=== PATIENT | female | born 1995 | race Caucasian/White ===

== ENCOUNTER 2019-10-17 13:05 | Outpatient (CLI) | payer OTHER ==
[2019-10-17 14:18] LABS: APPEARANCE,URINE CLOUDY; BILIRUBIN,URINE NEGATIVE (NEGATIVE); COLOR,URINE YELLOW; GLUCOSE, URINE 50 mg/dL (NEGATIVE); KETONES,URINE TRACE mg/dL (NEGATIVE); LEUKOCYTE ESTERASE,URINE LARGE (NEGATIVE); NITRITE,URINE NEGATIVE (NEGATIVE); PROTEIN,URINE 30 mg/dL (NEGATIVE)
[2019-10-17 14:52] LABS: URINE AMPHETAMINES SCREEN NEGATIVE; URINE BARBITURATES SCREEN NEGATIVE; URINE BENZODIAZEPINES SCREEN NEGATIVE; URINE COCAINE SCREEN NEGATIVE; URINE MARIJUANA (THC) SCREEN NEGATIVE; URINE METHADONE SCREEN NEGATIVE; URINE PHENCYCLIDINE SCREEN NEGATIVE
[2019-10-17 15:00] LABS: BACTERIA (WET MOUNT) 4+ BACTERIA SEEN; RBCS (WET MOUNT) FEW RBCS SEEN; T.VAGINALIS (WET MOUNT) NO TRICHOMONAS SEEN; WBCS (WET MOUNT) 4+ WBCS SEEN; YEAST (WET MOUNT) NO YEAST SEEN
[2019-10-17 16:29] LABS: CHLAM PCR NOT DETECTED (NOT DETECT)
[2019-10-20 12:50] LABS: HSV-I IGG AB 34.6 index (0.00-0.90)
== END 2019-10-17 19:00 | disposition home or self-care (01) ==
LOC: LC 13:05
PROVIDERS: ATTEND Obstetrics & Gynecology
PROC: 4A1HXCZ Monitoring of Products of Conception, Cardiac Rate, External Approach (ICD-10-PCS; principal; 2019-10-17)
DX: Z34.83 Encounter for supervision of other normal pregnancy, third trimester (principal); Z3A.35 35 weeks gestation of pregnancy
CPT/HCPCS: 36415; 59025; 80307; 81005; 84112; 86695; 86696; 86850; 86870; 86900; 86901; 87210; 87250; 87491; 87591

== ENCOUNTER 2019-11-06 03:51 | Inpatient (IN) | payer OTHER ==
[2019-11-06] MEDS ORDERED: LIDOCAINE 1% INJ-PF (10 MG/ML) 30 ML SDV ONE (04:01)
[2019-11-06] MEDS ORDERED: OXYTOCIN/NORMAL SALINE 20 UNIT/1,000 ML RTUINJ ONE (04:01)
[2019-11-06] MEDS ORDERED: MISOPROSTOL 0.2 MG TABLET ONE (04:01)
[2019-11-06] MEDS ORDERED: OXYTOCIN 10 UNIT/ML VIAL ONE (04:01)
[2019-11-06 04:31] LABS: ABSOLUTE BASOPHILS # (AUTO) 0.1 10^3/uL (0.0-0.2); ABSOLUTE LYMPHOCYTES (AUTO) 1.2 10^3/uL (0.5-4.7); ABSOLUTE MONOCYTES (AUTO) 0.7 10^3/uL (0.1-1.4); ABSOLUTE NEUT (AUTO) 9.7 10^3/uL (1.7-8.2); BASOPHILS % (AUTO) 0.5 % (0-2); EOSINOPHILS % (AUTO) 0.2 % (0-6); HEMATOCRIT 34.3 % (36.0-47.0); HEMOGLOBIN 11.8 g/dL (12.0-15.5); LYMPHOCYTES % (AUTO) 10.6 % (13-45); MEAN CORPUSCULAR HEMOGLOBIN 28.2 pg (27.0-33.4); MEAN CORPUSCULAR HGB CONC 34.3 g/dL (32.0-36.0); MEAN CORPUSCULAR VOLUME 82 fl (80-97); MONOCYTES % (AUTO) 5.6 % (3-13); PLATELET COUNT 170 10^3/uL (150-450); RED BLOOD COUNT 4.17 10^6/uL (3.72-5.28); RED CELL DISTRIBUTION WIDTH 18.8 % (11.5-14.0); SEGMENTED NEUTROPHILS % (AUTO) 83.1 % (42-78); TOTAL CELLS COUNTED % (AUTO) 100 %; WHITE BLOOD COUNT 11.7 10^3/uL (4.0-10.5)
--- NOTE | 2019-11-06 04:33 | Admission Physical ---
Datetime Report Generated by CPN: 11/06/2019 04:33 CURRENT ADMISSION Chief Complaint: Uterine Contractions Admit Impression : Term, Intrauterine ; Active Labor Admit Plan: Admit to Unit ALLERGIES Medication Allergies: Yes Medication Allergies: oxycodone (11/06/2019); acetaminophen (11/06/2019) Latex: No Latex Allergies OBSTETRICAL HISTORY EDC: 11/15/2019 00:00 : 4 Para: 1 Term: 1 : 0 SAB: 2 IAB: 0 Livin SEE RECORDS Alcohol: No Marijuana : No Cocaine: No Other Illicit Drugs: No Cigarettes: Former Smoker. [id number] PHYSICAL EXAM General: Normal HEENT: Normal Neurologic: Normal Thyroid: Normal Heart: Normal Lungs: Normal Breast: Normal Back: Normal Abdomen: Normal Genitourinary Exam: Normal Extremities: Normal DTRs: Normal Pelvic Type: Adequate Vital Signs: Reviewed VAGINAL EXAM Dilatation: 8 Effacement: 90 Station: -2 MEMBRANES Pooling: Negative Membranes: Intact FETUS A EGA: 38.5 Monitoring: External US FHR- Baseline: 125 Variability: Moderate 6-25bpm Accelerations: Prolonged Decelerations: None FHR Category: Category I Presentation: Vertex Admit Comment: at 38.5 wks EGA in active labor -Admit to LDR -NPO and IVFs: LR at 125 cc/hr, after Bolus of 1000cc -GBS negative -Hx one prior -Hx of labial lesion which cultured positive for HSV. Patient acts unaware of this and denies taking valtrex. On exam no lesions. There is a small abrasion on mons some distance from labia which she states is from shaving which also looks like it is from shaving. No ulcers, lesions, etc on speculum exam or labia/vulva -Anticipate . Wants Epidural if able. INFORMED CONSENT Informed Consent Obtained: Vaginal Delivery; Section Delivery; Risks, Benefits and Alternatives Discussed Signature: with User ID: Leona : with User ID: Leona
[2019-11-06] MEDS ORDERED: IBUPROFEN 800 MG TABLET ONE (06:28)
--- NOTE | 2019-11-06 06:53 | Delivery Summary ---
Del Sum A-C Datetime Report Generated by CPN: 11/06/2019 06:53 DELIVERY PERSONNEL DELIVERY PERSONNEL: [id number] Delivery Doctor:: Leticia Hay MD Labor and Delivery Nurse:: Fidelina Evans RNsingle pass soil stabilizer operator Nurse:: Bianca Treviño RN Tester Equipment:: Kenyatta Simmons RN Volunteer Firefighter/INVESTMENT COUNSELOR: [place] Green, ST MATERNAL INFORMATION Delivery Anesthesia: None Medications After Delivery: Pitocin Bolus-Please Comment Meds After Delivery Comment: Pitocin 20 units/1000 ml NSS Estimated Blood Loss (ml): 100 Maternal Complications: Precipitous Labor (<3hrs) Provider Comments: Called to patients room as she was completely dilated and +3 station with urge to push. Patient delivered over intact perinuem. After delivery of the head, the shoulders and rest of the body followed easily. Viable male in ANGEL presentation and vigorous at delivery. Cord clamping delayed 30 seconds and then after cutting cord he was placed on mohter's chest. Both mother and were stable. LABOR SUMMARY EDC: 11/15/2019 00:00 No. Babies in Womb: 1 Attempted: No Labor Anesthesia: None LABOR INFORMATION Reason for Induction: Not Applicable Onset of Labor: 11/06/2019 04:01 Complete Dilatation: 11/06/2019 05:00 Oxytocin: N/A Group B Beta Strep: Negative Antibiotics # of Doses: 0 Steroids Given: None Reason Steroids Not Administered: Not Applicable MEMBRANES Membranes Rupture Method: Spontaneous Rupture of Membranes: 11/06/2019 05:40 Length of Rupture (hr): 0.18 Amniotic Fluid Color: Clear Amniotic Fluid Amount: Moderate Amniotic Fluid Odor: Normal STAGES OF LABOR Stage 1 hr: 0 Stage 1 min: 59 Stage 2 hr: 0 Stage 2 min: 51 Stage 3 hr: 0 Stage 3 min: 4 Total Time in Labor hr: 1 Total Time in Labor min: 54 VAGINAL DELIVERY Episiotomy: None Laceration #1: None Laceration Extension #1: N/A Other Laceration: superficial left labial laceration that was hemostatic Laceration Repair: No Sponge Count Correct: Yes Sharps Count Correct: Yes CSECTION DELIVERY Primary Indication: N/A Secondary Indication: N/A CSection Urgency: N/A CSection Incidence: N/A Labor: N/A Elective: N/A CSection Incision: N/A BABY A INFORMATION Infant Delivery Date/Time: 11/06/2019 05:51 Method of Delivery: Vaginal Nurse Controlled Delivery: No Born in Route : No : N/A Forceps: N/A Vacuum Extraction: N/A Shoulder Dystocia : No PRESENTATION/POSITION BABY A Presentation: Cephalic Cephalic Presentation: Vertex Vertex Position: Left Occipital Anterior Breech Presentation: N/A PLACENTA INFORMATION BABY A Placenta Delivery Time : 11/06/2019 05:55 Placenta Method of Delivery: Spontaneous Placenta Status: Delivered SCORES BABY A Heart Rate 1 min: >100 bpm Resp Effort 1 min: Good Cry Reflex Irritability 1 min: Cough or Sneeze or Pulls Away Muscle Tone 1 min: Active Motion Color 1 min: Body [place], Extremities Blue Resuscitation Effort 1 min: Tactile Stimulation SCORE 1 MIN: 9 Heart Rate 5 min: >100 bpm Resp Effort 5 min: Good Cry Reflex Irritability 5 min: Cough or Sneeze or Pulls Away Muscle Tone 5 min: Active Motion Color 5 min: Body [place], Extremities Blue Resuscitation Effort 5 min: N/A SCORE 5 MIN: 9 INFORMATION BABY A Gestational Age at Delivery: 38.5 Gestational Status: Early Term- 37- 38.6 Weeks Outcome : Liveborn Condition : Stable Sex: Male IDENTIFICATION BABY A Infant Verification Date/Time: 11/06/2019 06:02 ID Band Number: [id number] Mother's Name Verified: Yes RN Verifying : J.Field, RN and E.Jilek, RN WEIGHT/LENGTH BABY A Birthweight (gm): 3630 Weight (lb): 8 Weight (oz): 0 Infant Length (in): 19.50 Length (cm): 49.53 CORD INFORMATION BABY A No. Cord Vessels: 3 Nuchal Cord : N/A Cord Blood Taken: Yes-For Eval (Mom's Blood Type - or O+) Suction: Mouth ASSESSMENT BABY A Complications: None Physical Findings at Delivery: Within Normal Limits Skin to Skin: No Senior Drupal Developer/ALS Called : No Transferred To: Remains with Mother BABY B INFORMATION : N/A SIGNATURES Signature: with User ID: Leona : with User ID: Leona
[2019-11-06] MEDS ORDERED: DIPH/PERTUSS(ACELL)/TETANUS VAC/PF 0.5 ML SYR (>=10YO) IM PRN (07:40)
[2019-11-06] MEDS ORDERED: ACETAMINOPHEN WITH CODEINE #3 TABLET PO PRN ×2 (07:40)
[2019-11-06] MEDS ORDERED: PROMETHAZINE HCL 25 MG SUPP.RECT PR PRN (07:40)
[2019-11-06] MEDS ORDERED: NA PHOS,M-B/NA PHOS,DI-BA (ADULT) 133 ML ENEMA PR PRN (07:40)
[2019-11-06] MEDS ORDERED: OXYTOCIN/NORMAL SALINE 20 UNIT/1,000 ML RTUINJ IV PRN (07:40)
[2019-11-06] MEDS ORDERED: DIPHENHYDRAMINE HCL 25 MG CAPSULE PO PRN (07:40)
[2019-11-06] MEDS ORDERED: PROMETHAZINE HCL INJ 25 MG/1 ML VIAL IV PRN (07:40)
[2019-11-06] MEDS ORDERED: BENZOCAINE/MENTHOL AEROSOL SPRAY 56 ML TOP PRN (07:40)
[2019-11-06] MEDS ORDERED: ZOLPIDEM TARTRATE 5 MG TABLET PO PRN (07:40)
[2019-11-06] MEDS ORDERED: DIBUCAINE 1% OINTMENT 28 GM TP PRN (07:40)
[2019-11-06] MEDS ORDERED: GLYCERIN/WITCH HAZEL LEAF 1 EACH MED..WIPE TP PRN (07:40)
[2019-11-06] MEDS ORDERED: ACETAMINOPHEN 650 MG SUPP.RECT PR PRN (07:40)
[2019-11-06] MEDS ORDERED: PSEUDOEPHEDRINE HCL 30 MG TABLET PO PRN (07:40)
[2019-11-06] MEDS ORDERED: PROMETHAZINE HCL 25 MG TABLET PO PRN (07:40)
[2019-11-06] MEDS ORDERED: MAGNESIUM HYDROXIDE SUSP 30 ML UDCUP PO PRN (07:40)
[2019-11-06] MEDS ORDERED: MEASLES,MUMPS&RUBELLA VACC/PF 0.5 ML VIAL SUBCUT PRN (07:40)
[2019-11-06] MEDS ORDERED: ACETAMINOPHEN WITH CODEINE #3 TABLET ONE (08:10)
--- NOTE | 2019-11-06 08:44 | Warning Signs in Babies ---
VOD Warning Signs Datetime Report Generated by [facility]: 11/06/2019 08:44 VOD#608 -Warning Signs in Babies: Viewed with Parent(s)/Family (11/06/2019 07:29:Jaquelin Dickinson RN)
[2019-11-06 08:46] LABS: APPEARANCE,URINE SLIGHTLY-CLOUDY; BILIRUBIN,URINE NEGATIVE (NEGATIVE); COLOR,URINE YELLOW; GLUCOSE, URINE NEGATIVE (NEGATIVE); KETONES,URINE TRACE mg/dL (NEGATIVE); LEUKOCYTE ESTERASE,URINE TRACE (NEGATIVE); NITRITE,URINE NEGATIVE (NEGATIVE); PROTEIN,URINE 30 mg/dL (NEGATIVE); URINE SPECIFIC GRAVITY 1.005; UROBILINOGEN,URINE NEGATIVE mg/dL (<2.0)
[2019-11-06 09:13] LABS: URINE AMPHETAMINES SCREEN NEGATIVE; URINE BARBITURATES SCREEN NEGATIVE; URINE BENZODIAZEPINES SCREEN NEGATIVE; URINE COCAINE SCREEN NEGATIVE; URINE MARIJUANA (THC) SCREEN NEGATIVE; URINE METHADONE SCREEN NEGATIVE; URINE PHENCYCLIDINE SCREEN NEGATIVE
[2019-11-06] MEDS ORDERED: DOCUSATE SODIUM 100 MG CAPSULE ONE (09:24)
[2019-11-06] MEDS ORDERED: FAMOTIDINE 20 MG TABLET ONE ×2 (09:24→11:18)
[2019-11-06] MEDS ORDERED: PRENATAL VITAMIN W DHA CAPSULE PO ONE (09:24)
[2019-11-06] MEDS ORDERED: SENNOSIDES/DOCUSATE 8.6-50 MG 1 EACH TABLET ONE (09:24)
[2019-11-06] MEDS ORDERED: FERROUS SULFATE 325 MG TABLET PO ONE (09:25)
[2019-11-06] MEDS: PRENATAL VITAMIN W DHA CAPSULE PO SCH (09:48)
[2019-11-06] MEDS: SENNOSIDES/DOCUSATE 8.6-50 MG 1 EACH TABLET PO SCH (09:48)
[2019-11-06] MEDS: DOCUSATE SODIUM 100 MG CAPSULE PO SCH ×2 (09:48→17:15)
[2019-11-06] MEDS: FERROUS SULFATE 325 MG TABLET PO SCH ×2 (09:48→17:15)
[2019-11-06] MEDS: FAMOTIDINE 20 MG TABLET PO SCH ×2 (09:59→23:09)
[2019-11-06] MEDS: IBUPROFEN 800 MG TABLET PO SCH ×3 (14:05→23:09)
[2019-11-07] MEDS: IBUPROFEN 800 MG TABLET PO SCH ×3 (05:34→21:46)
[2019-11-07 06:28] LABS: HEMATOCRIT 33.6 % (36.0-47.0); HEMOGLOBIN 11.5 g/dL (12.0-15.5); MEAN CORPUSCULAR HEMOGLOBIN 28.1 pg (27.0-33.4); MEAN CORPUSCULAR HGB CONC 34.2 g/dL (32.0-36.0); MEAN CORPUSCULAR VOLUME 82 fl (80-97); PLATELET COUNT 165 10^3/uL (150-450); RED BLOOD COUNT 4.09 10^6/uL (3.72-5.28); RED CELL DISTRIBUTION WIDTH 19.4 % (11.5-14.0); WHITE BLOOD COUNT 8.9 10^3/uL (4.0-10.5)
[2019-11-07] MEDS: FAMOTIDINE 20 MG TABLET PO SCH ×2 (09:55→21:47)
[2019-11-07] MEDS: FERROUS SULFATE 325 MG TABLET PO SCH ×2 (09:56→17:08)
[2019-11-07] MEDS: SENNOSIDES/DOCUSATE 8.6-50 MG 1 EACH TABLET PO SCH (09:56)
[2019-11-07] MEDS: PRENATAL VITAMIN W DHA CAPSULE PO SCH (09:56)
[2019-11-07] MEDS: DOCUSATE SODIUM 100 MG CAPSULE PO SCH ×2 (09:56→17:08)
--- NOTE | 2019-11-07 12:38 | PDOC PROGRESS REPORT ---
Subjective Progress Note for:: 11/07/19 Subjective:: Patient states that she feels good, decreasing lochia. Patient denies chest pain, shortness of breath, fever/chills or nausea/vomiting. She is ambulating and voiding without difficulty. Breast-feeding is going well. Reason For Visit: Physical Exam - Physical Exam Vital Signs: Temp Pulse Resp BP Pulse Ox 97.5 F 67 16 117/74 98 11/07/19 07:52 11/07/19 07:52 11/07/19 07:52 11/07/19 07:52 11/07/19 07:52 Intake & Output 11/06/19 11/07/19 11/08/19 06:59 06:59 06:59 Weight 64.41 kg General appearance: PRESENT: no acute distress Respiratory exam: PRESENT: clear to auscultation rachid Cardiovascular exam: PRESENT: RRR GI/Abdominal exam: PRESENT: normal bowel sounds, soft - Fundus firm and below umbilicus Extremities exam: ABSENT: calf tenderness, clubbing - No calf pain, full ROM, joint swelling, pedal edema, tenderness, +1 edema, +2 edema, other Result Laboratory Results: 11/07/19 06:16 11/07/19 06:16 WBC 8.9 RBC 4.09 Hgb 11.5 L Hct 33.6 L MCV 82 MCH 28.1 MCHC 34.2 RDW 19.4 H Plt Count 165 Assessment & Plan - Diagnosis (1) Active labor at term Is this a current diagnosis for this admission?: Yes (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 Qualified Code(s): A60.00 - Herpesviral infection of urogenital system, unspecified Is this a current diagnosis for this admission?: Yes (3) Precipitous delivery Is this a current diagnosis for this admission?: Yes - Time Time Spent with patient: 15-24 minutes Anticipated discharge: Home Within: within 24 hours - Inpatient Certification Based on my medical assessment, after consideration of the patient's comorbid ities, presenting symptoms, or acuity I expect that the services needed warrant INPATIENT care.: Yes I certify that my determination is in accordance with my understanding of Medicare's requirements for reasonable and necessary INPATIENT services [42 CFR 412.3e].: Yes - Plan Summary Plan Summary: 1. Continue current care 2. Anticipate discharge home tomorrow
[2019-11-08] MEDS: IBUPROFEN 800 MG TABLET PO SCH (05:10)
[2019-11-08] MEDS: FAMOTIDINE 20 MG TABLET PO SCH (09:19)
[2019-11-08] MEDS: PRENATAL VITAMIN W DHA CAPSULE PO SCH (09:19)
[2019-11-08] MEDS: SENNOSIDES/DOCUSATE 8.6-50 MG 1 EACH TABLET PO SCH (09:19)
[2019-11-08] MEDS: FERROUS SULFATE 325 MG TABLET PO SCH (09:19)
[2019-11-08] MEDS: DOCUSATE SODIUM 100 MG CAPSULE PO SCH (09:19)
--- NOTE | 2019-11-08 10:03 | PDOC DISCHARGE SUMMARY ---
Impression - Admit/DC Date/PCP Admission Date/Primary Care Provider: 11/06/19 04:03 SHEA TERESA MD Discharge Date: 11/08/19 - Discharge Diagnosis (1) Active labor at term Is this a current diagnosis for this admission?: Yes (2) Genital HSV Is this a current diagnosis for this admission?: Yes (3) Precipitous delivery Is this a current diagnosis for this admission?: Yes - Additional Information Discharge Diet: Regular Discharge Activity: Balance Activity w/Rest, Pelvic Rest Referrals: SHEA TERESA MD [Primary Care Provider] - Prescriptions: Ibuprofen [Motrin 800 mg Tablet] 800 mg PO Q8HP PRN #60 tablet PRN Reason: Home Medications: Pnv 102/Iron/Folate 1/Dss/Dha [Vitafol Fe+ Docusate Combo Pck] 1 tab PO DAILY 11/06/19 Ibuprofen [Motrin 800 mg Tablet] 800 mg PO Q8HP PRN #60 tablet 11/08/19 HPI Gestational Age: 38+5 Reason(s) for Admission: Onset of Labor Procedures: NST Intrapartum Procedure(s): Spontaneous Vaginal Delivery Complication(s): Laceration-Periurethral Results Laboratory Results: WBC 8.9 10^3/uL (4.0-10.5) 11/07/19 06:16 RBC 4.09 10^6/uL (3.72-5.28) 11/07/19 06:16 Hgb 11.5 g/dL (12.0-15.5) L 11/07/19 06:16 Hct 33.6 % (36.0-47.0) L 11/07/19 06:16 MCV 82 fl (80-97) 11/07/19 06:16 MCH 28.1 pg (27.0-33.4) 11/07/19 06:16 MCHC 34.2 g/dL (32.0-36.0) 11/07/19 06:16 RDW 19.4 % (11.5-14.0) H 11/07/19 06:16 Plt Count 165 10^3/uL (150-450) 11/07/19 06:16 Lymph % (Auto) 10.6 % (13-45) L 11/06/19 04:21 Snyder % (Auto) 5.6 % (3-13) 11/06/19 04:21 Eos % (Auto) 0.2 % (0-6) 11/06/19 04:21 Baso % (Auto) 0.5 % (0-2) 11/06/19 04:21 Absolute Neuts (auto) 9.7 10^3/uL (1.7-8.2) H 11/06/19 04:21 Absolute Lymphs (auto) 1.2 10^3/uL (0.5-4.7) 11/06/19 04:21 Absolute Monos (auto) 0.7 10^3/uL (0.1-1.4) 11/06/19 04:21 Absolute Eos (auto) 0.0 10^3/uL (0.0-0.6) 11/06/19 04:21 Absolute Basos (auto) 0.1 10^3/uL (0.0-0.2) 11/06/19 04:21 Seg Neutrophils % 83.1 % (42-78) H 11/06/19 04:21 Urine Color YELLOW 11/06/19 08:15 Urine Appearance SLIGHTLY-CLOUDY 11/06/19 08:15 Urine pH 7.0 (5.0-9.0) 11/06/19 08:15 Ur Specific [employer] 1.005 11/06/19 08:15 Urine Protein 30 mg/dL (NEGATIVE) H 11/06/19 08:15 Urine Glucose (UA) NEGATIVE mg/dL (NEGATIVE) 11/06/19 08:15 Urine Ketones TRACE mg/dL (NEGATIVE) H 11/06/19 08:15 Urine Blood LARGE (NEGATIVE) H 11/06/19 08:15 Urine Nitrite NEGATIVE (NEGATIVE) 11/06/19 08:15 Urine Bilirubin NEGATIVE (NEGATIVE) 11/06/19 08:15 Urine Urobilinogen NEGATIVE mg/dL (<2.0) 11/06/19 08:15 Ur Leukocyte Esterase TRACE (NEGATIVE) H 11/06/19 08:15 Urine Ascorbic Acid NEGATIVE (NEGATIVE) 11/06/19 08:15 Urine Opiates Screen NEGATIVE 11/06/19 08:15 Urine Methadone Screen NEGATIVE 11/06/19 08:15 Ur Barbiturates Screen NEGATIVE 11/06/19 08:15 Ur Phencyclidine Scrn NEGATIVE 11/06/19 08:15 Ur Amphetamines Screen NEGATIVE 11/06/19 08:15 U Benzodiazepines Scrn NEGATIVE 11/06/19 08:15 Urine Cocaine Screen NEGATIVE 11/06/19 08:15 U Marijuana (THC) Screen NEGATIVE 11/06/19 08:15 RPR NONREACTIVE (NONREACTIVE) 11/06/19 04:21 Blood Type B NEGATIVE 11/06/19 04:21 Antibody Screen POSITIVE 11/06/19 04:21 Antibody Identification RHOGAM INDUCED ANTI-D 11/06/19 04:21 Plan Plan of Treatment: follow up in 4 weeks at [facility]
[2019-11-08 10:36] VITALS: BP 116/70
== END 2019-11-08 13:26 | disposition home or self-care (01) | DRG 806 ==
LOC: LC 03:51 → LR 04:03 → 2S 13:05
PROVIDERS: ADMIT Obstetrics & Gynecology; ATTEND Obstetrics & Gynecology
PROC: 10E0XZZ Delivery of Products of Conception, External Approach (ICD-10-PCS; principal; 2019-11-06)
DX: O62.3 Precipitate labor (principal); O98.32 Other infections with a predominantly sexual mode of transmission complicating childbirth; Z37.0 Single live birth; A60.09 Herpesviral infection of other urogenital tract; Z3A.38 38 weeks gestation of pregnancy; Z88.6 Allergy status to analgesic agent; Z87.891 Personal history of nicotine dependence
CPT/HCPCS: 36415; 80307; 81005; 85025; 85027; 86592; 86850; 86870; 86900; 86901; J2590; J3490